=== PATIENT | male | born 1960 | race Caucasian/White ===

== ENCOUNTER 2021-03-02 10:41 | Emergency (ER) | payer OTHER ==
[2021-03-02] MEDS ORDERED: BACITRACIN15 GM TOP (11:51)
== END 2021-03-02 11:50 | disposition home or self-care (01) ==
LOC: FER 10:41
DX: T20.26XA Burn of second degree of forehead and cheek, initial encounter (principal); T20.27XA Burn of second degree of neck, initial encounter; T31.0 Burns involving less than 10% of body surface; X17.XXXA Contact with hot engines, machinery and tools, initial encounter; Y93.89 Activity, other specified; Y99.0 Civilian activity done for income or pay